=== PATIENT | male | born 1980 | race Caucasian/White ===

== ENCOUNTER 2018-04-02 15:02 | Emergency (ER) | payer OTHER | END 2018-04-02 15:40 | disposition home or self-care (01) | LOC: M ED 15:02 | DX: R59.1 Generalized enlarged lymph nodes (principal) | CPT/HCPCS: 99283 ==

== ENCOUNTER → 2019-09-06 | Outpatient (REF) | payer OTHER ==
[~2019-09-06] MED LIST: CLEO300C2 PO
[2019-09-06 17:21] LABS: BLOOD UREA NITROGEN 14 MG/DL (7-18); CALCIUM LEVEL 9.2 MG/DL (8.5-10.1); CARBON DIOXIDE LEVEL 28 MEQ/L (21-32); CHLORIDE LEVEL 101 MEQ/L (98-107); CREATININE FOR GFR 0.91 MG/DL (0.70-1.30); GLOMERULAR FILTRATION RATE > 60.0 (>60); GLUCOSE, FASTING 99 MG/DL (70-100); HEMATOCRIT 49.6 % (42.0-52.0); HEMOGLOBIN 16.6 g/dl (13.5-17.5); MEAN CORPUSCULAR HGB CONC 33.5 g/dl (32.0-36.5); MEAN CORPUSCULAR VOLUME 83.6 fl (80.0-96.0); PLATELET COUNT, AUTOMATED 271 10^3/uL (150-450); POTASSIUM SERUM 4.7 MEQ/L (3.5-5.1); RED BLOOD COUNT 5.93 10^6/uL (4.30-6.10); SODIUM LEVEL 137 MEQ/L (136-145); WHITE BLOOD COUNT 10.9 10^3/uL (4.0-10.0)
== END ==
LOC: M SFHCPLAZ 15:15
PROVIDERS: ATTEND Family Medicine
DX: R00.0 Tachycardia, unspecified (principal)
CPT/HCPCS: 36415; 80048; 85027; 93005; G0463

== ENCOUNTER → 2019-09-16 | Outpatient (REF) | payer OTHER ==
[2019-09-16 16:31] LABS: FREE T4 0.92 NG/DL (0.76-1.46); THYROID STIMULATING HORMONE 1.07 uIU/ML (0.358-3.740)
[2019-09-23 04:26] LABS: DOPAMINE PLASMA <30 pg/mL (0-48); EPINEPHRINE PLASMA 41 pg/mL (0-62); NOREPINEPHRINE PLASMA 462 pg/mL (0-874)
== END ==
LOC: M SFHCPLAZ 14:42
PROVIDERS: ATTEND Family Medicine
DX: I10 Essential (primary) hypertension (principal)

== ENCOUNTER → 2019-09-21 | Outpatient (CLI) | payer OTHER ==
--- NOTE | 2019-09-22 05:29 | REP ---
Clinical: Hypertension. Technique: Finch scale and color Doppler evaluation of the kidneys and renal vasculature using curved array transducer. Findings: The kidneys are essentially normal in contour size and echogenicity and reniform shape without hydronephrosis, nephrolithiasis, cystic or renal mass lesion. Right kidney measures 13.8 x 4.2 x 5.6 cm . Left kidney measures 13.1 x 5.6 x 4.6 cm . Bladder is incompletely distended and grossly normal by current evaluation. Color Doppler evaluation of the renal vasculature demonstrates normal arterial wave patterns, velocities, renal aortic ratios, resistive indices and the acceleration time. No sonographic evidence for renal arterial stenosis noted. Renal vein is patent. Right Kidney: Peak arterial velocity: 100 cm/sec . Renal aortic ratio: 1.08 . Resistive indices: 0.52 - 0.61 . Acceleration times: 0.01 . Left kidney: Peak arterial velocity: 118 cm/sec . Renal aortic ratio: 1.27 . Resistive indices: 0.49 - 0.54 . Acceleration times: 0.01 . Impression: Normal renal ultrasound. No evidence for renal arterial stenosis by ultrasound evaluation.
== END ==
LOC: M WHC 08:24
PROVIDERS: ATTEND Family Medicine
DX: I10 Essential (primary) hypertension (principal)

== ENCOUNTER → 2019-12-27 | Outpatient (CLI) | payer OTHER ==
[2019-12-27 13:48] LABS: ALBUMIN 3.7 GM/DL (3.2-5.2); ALT/SGPT 59 U/L (12-78); BILIRUBIN,TOTAL 0.3 MG/DL (0.2-1.0); BLOOD UREA NITROGEN 19 MG/DL (7-18); CALCIUM LEVEL 9.2 MG/DL (8.5-10.1); CARBON DIOXIDE LEVEL 29 MEQ/L (21-32); CHLORIDE LEVEL 105 MEQ/L (98-107); CREATININE FOR GFR 0.91 MG/DL (0.70-1.30); FREE T4 0.73 NG/DL (0.76-1.46); GLOMERULAR FILTRATION RATE > 60.0 (>60); GLUCOSE, FASTING 100 MG/DL (70-100); POTASSIUM SERUM 4.4 MEQ/L (3.5-5.1); SODIUM LEVEL 139 MEQ/L (136-145); TOTAL PROTEIN 6.9 GM/DL (6.4-8.2)
== END ==
LOC: M PLALAB 08:11
PROVIDERS: ATTEND Hospitalist
DX: R60.0 Localized edema (principal)

== ENCOUNTER → 2020-01-24 | Outpatient (CLI) | payer OTHER ==
--- NOTE | 2020-01-28 14:29 | ECHO ---
DATE OF PROCEDURE: 01/24/2020 Gender: M Height: 180 cm Weight: 146 kg REFERRING PHYSICIAN: Delmer Medel M.D. INDICATION: Edema MEASUREMENTS: IVS 1.0 LV 5.1 LVPW 0.9 LA 3.7 Aorta 3.4 RV 3.9 Mitral E wave velocity is 94; A wave 59 E prime septal 8.9 E prime lateral 9.3 FINDINGS: This study is of very limited technical quality corresponding to patient's body habitus. The patient is in sinus rhythm. Left ventricle is normal size and overall likely normal systolic function based on somewhat limited views. I estimate overall left ventricular ejection fraction (LVEF) 70% but I cannot rule out subtle wall motion abnormalities. The right ventricle was poorly visualized. It does not appear grossly enlarged. Left atrium is at least mildly enlarged. Right atrium was poorly seen. Aortic, mitral and to some degree also tricuspid valves appear normal. Visualization of tricuspid valve was very poor though. Pulmonic valve was not seen. No pericardial effusion is noted. Inferior vena cava was not visualized. Aortic root is normal. Aortic arch and abdominal aorta were not well seen. Doppler interrogation reveals competent aortic and mitral valves. Poor visualization of tricuspid valve does not indicate any obvious abnormality either. Mitral inflow pattern and tissue Doppler imaging of mitral annulus reveals likely normal diastolic function even though tissue Doppler velocities of mitral annulus are mildly reduced. CONCLUSIONS: 1. Study is of rather limited technical quality corresponding to patient's body habitus. 2. Normal left ventricle size with overall preserved left ventricular systolic function and probably also normal diastolic function. 3. No significant aortic, mitral and tricuspid valvular disease, pulmonic valve was not well seen. 4. Unable to estimate central venous pressure and pulmonary artery pressure. COMMENTS: This study cannot answer the question whether peripheral edema is due to congestive heart failure but based on very limited images, it appears less likely. [facility]
--- NOTE | 2020-02-02 07:11 | REP ---
DUPLEX LOWER EXTREMITY VENOUS ULTRASOUND WITH DOPPLER AND REFLUX EVALUATION HISTORY: Venous insufficiency. FINDINGS: The deep veins are anechoic and fully compressible on two-dimensional scanning from the groin to the popliteal fossa bilaterally in the lower extremities. Color flow imaging and pulse Doppler interrogation show no evidence to suggest deep vein thrombosis (DVT). IMPRESSION: No evidence of deep vein thrombosis. VENOUS INSUFFICIENCY REFLUX STUDY: Multiple collaterals are seen arising from the greater saphenous vein with minimal reflux in the right common femoral and superficial femoral vein. Common femoral vein reflux is 3.9 seconds in duration. The greater saphenous vein measures 9 mm in AP dimension at the proximal saphenofemoral junction, 4 mm in AP dimension at mid thigh, and 3 mm in AP dimension at the knee. 4.9 second duration reflux is seen in the proximal superficial femoral vein. The lesser saphenous vein is 3 mm in diameter. No deep or superficial system reflux is observed on the left. The greater saphenous vein dimensions are 8 mm, 3 mm, and 2 mm respectively at the proximal thigh, mid thigh, and knee. Lesser saphenous vein is 3 mm in diameter on the left. IMPRESSION: Multiple venous collaterals are seen extending off of the greater saphenous vein on the right. There is minimal common femoral and superficial femoral vein reflux on the right. No observable deep or superficial system reflux on the left. [facility]
== END ==
LOC: M RAD 12:42
PROVIDERS: ATTEND Hospitalist
DX: R60.0 Localized edema (principal); I87.2 Venous insufficiency (chronic) (peripheral); I15.8 Other secondary hypertension

== ENCOUNTER → 2020-02-24 | Outpatient (CLI) | payer OTHER ==
--- NOTE | 2020-02-29 13:37 | SLEEPCENT ---
DATE: 02/24/2020 ORDERED BY: KATHERINE Roblero Nocturnal polysomnography was performed for evaluation of sleep physiology in this patient with a history of excessive somnolence, nonrestorative sleep, and morning headaches. Seven hours and 7 minutes of data were reviewed. There were 321.5 minutes of sleep identified. Sleep latency was prolonged at 40 minutes. REM latency was short at 64 minutes. Sleep architecture was fairly well preserved with four REM cycles of progressive length. There was some sleep fragmentation appreciated. Overall sleep efficiency 77%. The electrocardiogram showed a sinus rhythm with an average heart rate of 80 beats per minute. Rate ranged 60-102. EEG showed some EKG artifact. There was some alpha intrusion into non-REM stages. No focal events were seen. There were 91 respiratory events identified of 10 seconds in duration or greater for an apnea-hypopnea index of 17 per hour. The events were obstructive, not exclusive to sleep stage nor to body posture though they were somewhat more frequent in the supine position. Arousals from respiratory events resulted in stage change 9.3 times per hour, and oxygen desaturations were seen into the 70s. There was also some activity in limb EMG leads but no trains of events and snoring was noted over the entire study. IMPRESSION: Moderate obstructive sleep apnea syndrome (G47.33). Apnea-hypopnea index 17. RECOMMENDATION: The patient should be encouraged to return to [facility] for [facility]. In the interim, alcohol and sedative avoidance should be practiced and caution exercised during the operation of motor vehicles. MTDD
== END ==
LOC: M SLEEP 20:00
PROVIDERS: ATTEND Physician Assistant
DX: G47.33 Obstructive sleep apnea (adult) (pediatric) (principal); R40.0 Somnolence

== ENCOUNTER → 2020-03-16 | Outpatient (CLI) | payer OTHER ==
--- NOTE | 2020-03-20 11:42 | SLEEPCENT ---
DATE: 03/16/2020 ORDERED BY: KATHERINE Roblero Nocturnal polysomnography was performed for the titration of pressure therapy in this patient with obstructive sleep apnea syndrome with apnea-hypopnea index of 17. For testing, the patient was fitted with a ResMed Quattro full face mask of large size was used, 4 cm of water pressure were applied to the circuit, and the lights were extinguished. 6 hours and 58 minutes of data were reviewed. There were 354.5 minutes of sleep identified. Sleep latency was prolonged at 34 minutes. REM latency was short at 44 minutes. Sleep architecture was good with four REM cycles appreciated. Overall sleep efficiency was 86.1%. The electrocardiogram showed a sinus rhythm throughout with an average heart rate of 85 beats per minute, rate range 78 to 105. EEG showed reasonably normal waveforms for wake and sleep. Respiratory events were best palliated with CPAP at a pressure of +14 with some activity noted in the limb leads. Limb movement arousal index was 5.1. IMPRESSION: Obstructive sleep apnea syndrome (G47.33). RECOMMENDATION: Nightly use of pressure therapy 14 cm of water. MTDD
== END ==
LOC: M SLEEP 20:00
PROVIDERS: ATTEND Physician Assistant
DX: G47.33 Obstructive sleep apnea (adult) (pediatric) (principal)

== ENCOUNTER → 2020-03-28 | Outpatient (REF) | payer OTHER | LOC: M SFHCPLAZ 10:25 | PROVIDERS: ATTEND Family Medicine | DX: Z53.9 Procedure and treatment not carried out, unspecified reason (principal); I15.8 Other secondary hypertension ==

== ENCOUNTER 2020-10-13 03:21 | Inpatient (IN) | payer OTHER, MEDICAID ==
[~2020-10-13] VITALS: Ht 180.3 cm; Wt 130.5 kg
[2020-10-13] VITALS (10 sets, daily range): BP systolic 93–152; BP diastolic 53–78
[2020-10-13 03:54] LABS: BASO # 0.1 10^3/uL (0.0-0.2); BASO % 1.1 % (0.0-1.0); EOS # 0.1 10^3/uL (0.0-0.5); EOS % 2.1 % (0.0-3.0); HEMATOCRIT 45.4 % (42.0-52.0); HEMOGLOBIN 16.1 g/dl (13.5-17.5); LYMPH # 1.5 10^3/uL (1.5-5.0); LYMPH % 23.4 % (24.0-44.0); MEAN CORPUSCULAR HEMOGLOBIN 31.4 pg (27.0-33.0); MEAN CORPUSCULAR HGB CONC 35.5 g/dl (32.0-36.5); MEAN CORPUSCULAR VOLUME 88.5 fl (80.0-96.0); MONO # 0.5 10^3/uL (0.0-0.8); MONO % 8.5 % (2.0-8.0); NEUTROPHILS # 3.9 10^3/uL (1.5-8.5); NEUTROPHILS % 63.4 % (36.0-66.0); PLATELET COUNT, AUTOMATED 192 10^3/uL (150-450); RED BLOOD COUNT 5.13 10^6/uL (4.30-6.10); WHITE BLOOD COUNT 6.2 10^3/uL (4.0-10.0)
[2020-10-13 05:12] LABS: ALBUMIN 3.2 GM/DL (3.2-5.2); BILIRUBIN,DIRECT < 0.1 MG/DL (0.0-0.2); BILIRUBIN,TOTAL 0.9 MG/DL (0.2-1.0); BLOOD UREA NITROGEN 12 MG/DL (7-18); CARBON DIOXIDE LEVEL 16 MEQ/L (21-32); CHLORIDE LEVEL 98 MEQ/L (98-107); CK-MB VALUE MASS 2.5 NG/ML (<3.6); CPK CREATINE PHOSPHOKINASE 292 U/L (39-308); CREATININE FOR GFR 1.31 MG/DL (0.70-1.30); GLOMERULAR FILTRATION RATE > 60.0 (>60); GLUCOSE, FASTING 874 MG/DL (70-100); LIPASE 256 U/L (73-393); MB/CK RELATIVE INDEX 0.86 (< OR =4); SODIUM LEVEL 129 MEQ/L (136-145); TROPONIN I < 0.02 NG/ML (< 0.10)
--- NOTE | 2020-10-13 05:42 | ECGEPIP ---
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
[2020-10-13] MEDS ORDERED: HumuLIN R (REGULAR) INSULIN (NovoLIN R) **100U/ML** PER UNIT IV ONE (06:00)
[2020-10-13] MEDS ORDERED: ISOVUE-370 76% 100ML VIAL As Ordered ONE (06:10)
[2020-10-13 06:15] LABS: VENOUS BASE EXCESS -16.2 (-2.0-2.0); VENOUS O2 SATURATION 78.7 % (60.0-80.0); VENOUS PARTIAL PRESSURE CO2 36.3 mmHg (38.0-50.0); VENOUS PARTIAL PRESSURE O2 46.9 mmHg (30.0-50.0); VENOUS PH 7.136 UNITS (7.330-7.430); VENOUS STANDARD HCO3 12.2 MEQ/L; VENOUS TOTAL CO2 13.1 MEQ/L (24.0-28.0)
[2020-10-13 06:37] LABS: OSMOLALITY SERUM 325 MOSM/KG (275-295)
[2020-10-13 06:49] LABS: ACETONE/KETONE > 46.00 MG/DL (<2.81); ALBUMIN 3.3 GM/DL (3.2-5.2); ALT/SGPT 59 U/L (12-78); BILIRUBIN,DIRECT < 0.1 MG/DL (0.0-0.2); BILIRUBIN,TOTAL 0.8 MG/DL (0.2-1.0); MAGNESIUM LEVEL 2.5 MG/DL (1.8-2.4); PHOSPHORUS LEVEL 3.3 MG/DL (2.5-4.9); TOTAL PROTEIN 6.8 GM/DL (6.4-8.2)
[2020-10-13] MEDS ORDERED: INSULIN IV RATE CHANGE DOCUMENTATION ML/HR XX SCH (06:50)
[2020-10-13] MEDS ORDERED: NS 1,000 ML IV ONE ×3 (06:50→11:10)
[2020-10-13] MEDS ORDERED: INSULIN REGULAR IN 0.9 % NACL 100 UNIT in IV 1 EA IV SCH ×6 (06:50→22:05)
--- NOTE | 2020-10-13 07:02 | REPVR ---
PROCEDURE INFORMATION: Exam: XR Chest Exam date and time: 10/13/2020 3:57 AM Age: 39 years old Clinical indication: Other: Chest pain TECHNIQUE: Imaging protocol: XR of the chest. Views: 1 view. COMPARISON: No relevant prior studies available. FINDINGS: Lungs: Unremarkable. No consolidation. Pleural spaces: Unremarkable. No pleural effusion. No pneumothorax. Heart/Mediastinum: Unremarkable. No cardiomegaly. Bones/joints: Unremarkable. IMPRESSION: No acute findings. Electronically signed by: Alessio Hobbs On 10/13/2020 07:01:39 AM
[2020-10-13] MEDS ORDERED: ATOR40TA75 PO (07:08)
[2020-10-13] MEDS ORDERED: ERGO500029 PO (07:08)
[2020-10-13] MEDS ORDERED: METF-839 PO (07:08)
[2020-10-13] MEDS ORDERED: LEXA1TAB2 PO (07:08)
[2020-10-13 08:23] LABS: RSV AMPLIFICATION NEGATIVE (NEGATIVE)
[2020-10-13] MEDS ORDERED: ONDANSETRON 4MG/2ML VIAL IV PRN (09:00)
[2020-10-13] MEDS ORDERED: NS 1,000 ML IV SCH (09:00)
[2020-10-13] MEDS ORDERED: PANTOPRAZOLE 40MG VIAL (C9113 PER 1) IV SCH (09:00)
[2020-10-13 12:02] LABS: HEMOGLOBIN A1c 13.7 %
[2020-10-13] MEDS: INSULIN IV RATE CHANGE DOCUMENTATION ML/HR XX SCH ×10 (12:07→22:58)
[2020-10-13 12:09] LABS: BLOOD UREA NITROGEN 9 MG/DL (7-18); CALCIUM LEVEL 7.8 MG/DL (8.5-10.1); CARBON DIOXIDE LEVEL 12 MEQ/L (21-32); CHLORIDE LEVEL 115 MEQ/L (98-107); CREATININE FOR GFR 0.83 MG/DL (0.70-1.30); GLOMERULAR FILTRATION RATE > 60.0 (>60); GLUCOSE, FASTING 238 MG/DL (70-100); POTASSIUM SERUM 3.4 MEQ/L (3.5-5.1); SODIUM LEVEL 142 MEQ/L (136-145)
[2020-10-13] MEDS: KCL 40MEQ IN D5/0.45NS 1000ML 1,000 ML IV SCH ×2 (12:36→19:12)
--- NOTE | 2020-10-13 13:38 | HPEPDOC ---
General Date of Admission Oct 13, 2020 at 08:58 Date of Service: Oct 13, 2020 Chief Complaint The patient is a 39-year-old male admitted with a reason for visit of DKA. Source: Patient History of Present Illness 39 lynnette old male with PMH of Hypertension, Diabetes diagnosed in july 2020, Morbid obesity, RENETTA on CPAP, HLD, generalized anxiety disorder presented to ED for chest pain ad shortness of breath for a few hours. he also complained of nausea and vomiting , poor appetite for 2 days and polyuria , polydipsia for 6 months. He reported that he was diagnosed with Diabetes at the [facility] in july, along with vit d def and high cholesterol and was started on 7 medications. he took them for 2 weeks but one of meds was causing him to have upset stomach so he stopped taking all the meds. On arrival to [facility] ED he was unsteady on his feet, anxious, fidgety could not stay still complained of cramp in his left leg along with SOB and chest pain. He was found to have a blood glucose of 854 and blood gas showed a pH of 7.13 and elevated betahydroxybutyrate. he was diagnosed with DKA and admitted to ICU. Home Medications Scheduled Atorvastatin Calcium (Atorvastatin Calcium) 40 Mg Tablet, 40 MG PO DAILY, (Reported) Ergocalciferol (Vitamin D2) (Vitamin D2) 50,000 Units Cap, 50,000 UNITS PO QWEEK, (Reported) FRIDAYS Escitalopram Oxalate (Lexapro) 20 Mg Tablet, 20 MG PO DAILY, (Reported) Metformin HCl (Metformin HCl) 500 Mg Tablet, 500 MG PO BID, (Reported) Allergies Coded Allergies: No Known Allergies (Unverified , 04/02/18) Past Medical History Medical History Hypertension, Diabetes diagnosed in july 2020, Morbid obesity, RENETTA on CPAP, HLD , generalized anxiety disorder. Surgical History tonsillectomy, vasectomy. Family History Significant Family History: COPD (Mother), Diabetes (maternal gransmother) Social History * Smoker: chew (tobacco) Alcohol: occationally Drugs: denies A-FIB/CHADSVASC A-FIB History Current/History of A-Fib/PAF?: No Review of Systems Constitutional: Reports: Weakness, Fatigue; Denies: Chills, Fever, Night Sweats Eyes: Denies: Pain, Vision change ENT: Denies: Head Aches, Ear Pain, Dysphagia Skin: Denies: Rash, Lesions, Breakdown Pulmonary: Reports: Dyspnea; Denies: Cough Cardiovascular: Reports: Chest Pain, Lt Headedness; Denies: Palpitations, Orthopnea, Paroxysmal Noc. Dyspnea Gastrointestinal: Reports: Nausea, Vomiting, Abdominal Pain; Denies: Diarrhea Genitourinary: Reports: Frequency; Denies: Dysuria, Incontinence, Retention Endocrine: Reports: Polydipsia, Polyphagia, Polyuria Physical Examination General Exam: Positive: Alert, Cooperative, Mild Distress Eye Exam: Positive: PERRLA, Conjunctiva & lids normal, EOMI; Negative: Sclera icteric ENT Exam: Positive: Atraumatic, Mucous membr. moist/pink, Pharynx Normal Neck Exam: Positive: Supple; Negative: JVD, thyromegaly Chest Exam: Positive: Clear to auscultation, Normal air movement Heart Exam: Positive: Rate Normal, Regular Rhythm, Normal S1, Normal S2; Negative: Murmurs, Rubs Telemetry: Positive: No significant arrhythmia, Sinus, Tachycardia Abdomen Exam: Positive: Normal bowel sounds, Soft, Other (obese); Negative: Tenderness Extremity Exam: Negative: Clubbing, Cyanosis, Edema Vital Signs Vital Signs Date Time Temp Pulse Resp B/P (MAP) Pulse Ox O2 Delivery O2 Flow Rate FiO2 10/13/20 12:00 102 124/59 (80) 97 Room Air 10/13/20 10:44 98.6 20 Laboratory Data Labs 24H Laboratory Tests 2 10/13/20 03:46: Immature Granulocyte % (Auto) 1.5, Neutrophils (%) (Auto) 63.4, Lymphocytes (%) (Auto) 23.4L, Monocytes (%) (Auto) 8.5H, Eosinophils (%) (Auto) 2.1, Basophils (%) (Auto) 1.1H, Neutrophils # (Auto) 3.9, Lymphocytes # (Auto) 1.5, Monocytes # (Auto) 0.5, Eosinophils # (Auto) 0.1, Basophils # (Auto) 0.1, Nucleated Red Blood Cells % (auto) 0.0, Anion Gap 15, Glomerular Filtration Rate > 60.0, Calcium Level , Total Bilirubin 0.9, Direct Bilirubin < 0.1, Aspartate Amino Transf (AST/SGOT) , Alanine Aminotransferase (ALT/SGPT) , Alkaline Phosphatase 225H, Total Creatine Kinase 292, Creatine Kinase MB 2.5, Creatine Kinase MB Relative Index 0.86, Troponin I < 0.02, Total Protein , Albumin 3.2, Album in/Globulin Ratio , Lipase 256 10/13/20 05:59: Calcium Level , Total Bilirubin 0.8, Direct Bilirubin < 0.1, Aspartate Amino Transf (AST/SGOT) 47H, Alanine Aminotransferase (ALT/SGPT) 59, Alkaline Phosphatase 196H, Total Protein 6.8, Albumin 3.3, Albumin/Globulin Ratio 0.9, Urine Color STRAW, Urine Appearance CLEAR, Urine pH 5.0, Urine Specific [place] 1.024, Urine Protein NEGATIVE, Urine Glucose (UA) 3+H, Urine Ketones 2+H, Urine Blood 2+H, Urine Nitrite NEGATIVE, Urine Bilirubin NEGATIVE, Urine Urobilinogen 0.2, Urine Leukocyte Esterase NEGATIVE, Urine WBC (Auto) 0, Urine RBC (Auto) 1, Urine Hyaline Casts (Auto) 0, Urine Bacteria (Auto) NEGATIVE, Urine Squamous Epithelial Cells 0, Urine Mucus (Auto) SMALL, Urine Sperm (Auto) , Blood Gas Bicarbonate Standard 12.2, Venous Blood pH 7.136L, Venous Blood Partial Pressure CO2 36.3L, Venous Blood Partial Pressure O2 46.9, Venous Blood Total Carbon Dioxide 13.1L, Venous Blood HCO3 12.0L, Venous Blood Oxygen Saturation 78.7, Venous Blood Base Excess -16.2L, Osmolality 325H, Phosphorus Level 3.3, Magnesium Level 2.5H, B-Hydroxybutyrate > 46.00H 10/13/20 07:03: Bedside Glucose (Misc Panel) 536*H 10/13/20 07:28: Coronavirus (COVID-19)(PCR) NEGATIVE, Influenza Type A (RT-PCR) NEGATIVE, Influenza Type B (RT-PCR) NEGATIVE, Respiratory Syncytial Virus (PCR) NEGATIVE 10/13/20 08:03: Bedside Glucose (Misc Panel) 481H 10/13/20 09:11: Bedside Glucose (Misc Panel) 448H 10/13/20 10:05: Bedside Glucose (Misc Panel) 371H 10/13/20 10:45: Bedside Glucose (Misc Panel) 260H 10/13/20 11:29: Anion Gap 15, Glomerular Filtration Rate > 60.0, Estimated Mean Plasma Glucose 346H, Hemoglobin A1c 13.7, Calcium Level 7.8L 10/13/20 12:03: Bedside Glucose (Misc Panel) 180H CBC/BMP Laboratory Tests 10/13/20 03:46 10/13/20 11:29 Assessment/Plan 39 lynnette old male with PMH of Hypertension, Diabetes diagnosed in july 2020, Morbid obesity, RENETTA on CPAP, HLD, generalized anxiety disorder presented to ED for chest pain ad shortness of breath for a few hours. he also complained of nausea and vomiting , poor appetite for 2 days and polyuria , polydipsia for 6 months. He was found to have DKA. DKA diagnosed with DM in july 2020, His sugars in 2019 were normal. insulin infusion till gap corrected and bicab > 20 FS q 1 hours. npo, allow water and ice chips received 3 L bolus. IVF NS then change to dex/ 0.45 NS when sugars less than 200. symptomatic with zofran, PPI. Hypokalemia K added to IVF pseudohyponatremia due to the high sugars. Morbid obesity with RENETTA BMI of 40.1 may use own CPAP Hypertension Bp noramal will not give any meds now. HLD will check lipid panel No meds for now. RAINA BARRAZA MD Oct 13, 2020 13:38
[2020-10-13 17:55] LABS: BLOOD UREA NITROGEN 8 MG/DL (7-18); CALCIUM LEVEL 7.9 MG/DL (8.5-10.1); CARBON DIOXIDE LEVEL 15 MEQ/L (21-32); CHLORIDE LEVEL 117 MEQ/L (98-107); CREATININE FOR GFR 0.96 MG/DL (0.70-1.30); GLOMERULAR FILTRATION RATE > 60.0 (>60); GLUCOSE, FASTING 181 MG/DL (70-100); POTASSIUM SERUM 3.4 MEQ/L (3.5-5.1); SODIUM LEVEL 144 MEQ/L (136-145)
[2020-10-13] MEDS ORDERED: POTASSIUM CHLORIDE 10 MEQ SR TABLET PO ONE (19:00)
[2020-10-13] MEDS: POTASSIUM CHLORIDE 10 MEQ SR TABLET PO SCH (20:02)
[2020-10-13 23:26] LABS: BLOOD UREA NITROGEN 8 MG/DL (7-18); CALCIUM LEVEL 7.6 MG/DL (8.5-10.1); CARBON DIOXIDE LEVEL 18 MEQ/L (21-32); CHLORIDE LEVEL 118 MEQ/L (98-107); CREATININE FOR GFR 0.97 MG/DL (0.70-1.30); GLOMERULAR FILTRATION RATE > 60.0 (>60); GLUCOSE, FASTING 243 MG/DL (70-100); POTASSIUM SERUM 3.5 MEQ/L (3.5-5.1); SODIUM LEVEL 144 MEQ/L (136-145)
[2020-10-13] MEDS ORDERED: LEVEMIR (INSULIN DETEMIR) 1 UNITS/0.01ML SC ONE (23:45)
[2020-10-14] VITALS: BP 131/73
[2020-10-14] MEDS ORDERED: GLUCAGON INJ 1MG VIAL SC PRN (00:20)
[2020-10-14] MEDS ORDERED: GLUCOSE 4GM CHEW TABLET PO PRN (00:20)
[2020-10-14] MEDS ORDERED: DEXTROSE 50% 50 ML SYRINGE IV PRN (00:20)
[2020-10-14] MEDS: INSULIN IV RATE CHANGE DOCUMENTATION ML/HR XX SCH (00:25)
[2020-10-14] MEDS: HumaLOG INSULIN (NovoLOG) PER UNIT SC SCH ×5 (00:34→17:21)
[2020-10-14 04:00] VITALS: BP 139/88
[2020-10-14 04:51] LABS: BASO # 0.1 10^3/uL (0.0-0.2); BASO % 0.8 % (0.0-1.0); EOS # 0.2 10^3/uL (0.0-0.5); HEMATOCRIT 39.7 % (42.0-52.0); LYMPH # 1.8 10^3/uL (1.5-5.0); LYMPH % 30.5 % (24.0-44.0); MEAN CORPUSCULAR HEMOGLOBIN 28.9 pg (27.0-33.0); MONO # 0.6 10^3/uL (0.0-0.8); MONO % 9.2 % (2.0-8.0); NEUTROPHILS # 3.3 10^3/uL (1.5-8.5); NEUTROPHILS % 55.5 % (36.0-66.0); PLATELET COUNT, AUTOMATED 151 10^3/uL (150-450); RED BLOOD COUNT 4.67 10^6/uL (4.30-6.10)
[2020-10-14 04:54] LABS: HEMOGLOBIN 13.5 g/dl (13.5-17.5)
[2020-10-14 05:32] LABS: ACETONE/KETONE 42.94 MG/DL (<2.81); BLOOD UREA NITROGEN 7 MG/DL (7-18); CALCIUM LEVEL 7.9 MG/DL (8.5-10.1); CARBON DIOXIDE LEVEL 18 MEQ/L (21-32); CHLORIDE LEVEL 114 MEQ/L (98-107); CHOLESTEROL LEVEL 231 MG/DL (<200); CHOLESTEROL RISK RATIO 12.157 (<5); CREATININE FOR GFR 0.87 MG/DL (0.70-1.30); GLOMERULAR FILTRATION RATE > 60.0 (>60); GLUCOSE, FASTING 286 MG/DL (70-100); HDL CHOLESTEROL 19 MG/DL (>40); NON-HDL-C 212 MG/DL; POTASSIUM SERUM 3.4 MEQ/L (3.5-5.1); SODIUM LEVEL 141 MEQ/L (136-145); TRIGLYCERIDES LEVEL 1056 MG/DL (<150)
--- NOTE | 2020-10-14 06:46 | ECGEPIP ---
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
[2020-10-14 08:00] VITALS: BP 132/63
[2020-10-14] MEDS ORDERED: BASA100I SC (08:01)
[2020-10-14] MEDS: POTASSIUM CHLORIDE 10 MEQ SR TABLET PO SCH ×2 (08:48→21:23)
[2020-10-14] MEDS: PANTOPRAZOLE 40MG TAB (PROTONIX) PO SCH (08:48)
[2020-10-14] MEDS: ENOXAPARIN 40MG/0.4ML SYRINGE (J1650 PER 10MG) SC SCH (08:49)
[2020-10-14] MEDS: ATORVASTATIN 20 MG TAB PO SCH (08:49)
[2020-10-14] MEDS ORDERED: LEVEMIR (INSULIN DETEMIR) 1 UNITS/0.01ML SC SCH (09:00)
--- NOTE | 2020-10-14 11:02 | IPNPDOC ---
Subjective Date Seen The patient was seen on 10/14/20. Subjective Chief Complaint/HPI Patient feeling better. Polyuria less, no further vomiting. Able to keep all meals down. getting insulin teaching. I sent over script to [facility] for basaglar inulin which has a copay of 341. Patient [place] for medication through [place]. Unfortunately we will not be able to arrange for his insulin through [place] till the earliest Friday. PFS is going to get in touch with [facility] to see if there is any other alternate insulins that are cheaper. Patient says he will not go to [facility] anyway. He wants his medication only though the [place] where he does not have any copay for any of his medications. He indicated that he is not going to stay till friday and is going to sign out AMA and the hospital has to arrange for his medications. Objective Physical Examination General Exam: Positive: Alert, Cooperative, No Acute Distress Eye Exam: Positive: PERRLA, Conjunctiva & lids normal, EOMI; Negative: Sclera icteric ENT Exam: Positive: Atraumatic, Mucous membr. moist/pink, Pharynx Normal Neck Exam: Positive: Supple; Negative: JVD, thyromegaly Chest Exam: Positive: Clear to auscultation, Normal air movement Heart Exam: Positive: Rate Normal, Regular Rhythm, Normal S1, Normal S2; Negative: Murmurs, Rubs Telemetry: Positive: No significant arrhythmia, Sinus, Tachycardia Abdomen Exam: Positive: Normal bowel sounds, Soft, Other (obese); Negative: Tenderness Extremity Exam: Negative: Clubbing, Cyanosis, Edema Assessment /Plan Assessment 39 lynnette old male with PMH of Hypertension, Diabetes diagnosed in July 2020, Morbid obesity, RENETTA on CPAP, HLD, generalized anxiety disorder presented to ED for chest pain ad shortness of breath for a few hours. he also complained of nausea and vomiting , poor appetite for 2 days and polyuria , polydipsia for 6 months. He was found to have DKA. DKA diagnosed with DM in july 2020, His sugars in 2019 were normal. resolving. Betahydroxybutyrate still elevated. changed to levemir and lispro insulin. will also give glimiperide. Tests sent out for islet cell antibodies. FS ac and HS. started on insulin teaching. Hypokalemia replaced Hypertriglyceridemia triglyceride 1076 started on atorvastatin. Morbid obesity with RENETTA BMI of 40.1 does not use the CPAP as he has to go to the bathroom every hour. Encouraged to go back to using the CPAP as now with better sugar control he will not have polyuria. Hypertension Bp normal will not give any meds now. Plan/VTE VTE Prophylaxis Ordered?: Yes VS, I&O, 24H, Fishbone Vital Signs/I&O Vital Signs Date Time Temp Pulse Resp B/P (MAP) Pulse Ox O2 Delivery O2 Flow Rate FiO2 10/14/20 08:00 97.4 87 20 132/63 (86) 98 Room Air I&O- Last 24 Hours up to 6 AM 10/14/20 06:00 Intake Total 5553 ml Output Total 5275 ml Balance 278 ml Laboratory Data 24H LABS Laboratory Tests 2 10/13/20 11:29: Anion Gap 15, Glomerular Filtration Rate > 60.0, Estimated Mean Plasma Glucose 346H, Hemoglobin A1c 13.7, Calcium Level 7.8L 10/13/20 12:03: Bedside Glucose (Misc Panel) 180H 10/13/20 13:13: Bedside Glucose (Misc Panel) 152H 10/13/20 14:00: Bedside Glucose (Misc Panel) 151H 10/13/20 14:59: Bedside Glucose (Misc Panel) 175H 10/13/20 15:59: Bedside Glucose (Misc Panel) 166H 10/13/20 16:58: Bedside Glucose (Misc Panel) 183H 10/13/20 17:02: Anion Gap 12, Glomerular Filtration Rate > 60.0, Calcium Level 7.9L, B- Hydroxybutyrate > 46.00H 10/13/20 18:02: Bedside Glucose (Misc Panel) 169H 10/13/20 18:51: Bedside Glucose (Misc Panel) 197H 10/13/20 19:53: Bedside Glucose (Misc Panel) 282H 10/13/20 20:52: Bedside Glucose (Misc Panel) 261H 10/13/20 21:55: Bedside Glucose (Misc Panel) 239H 10/13/20 22:42: Anion Gap 8, Glomerular Filtration Rate > 60.0, Calcium Level 7.6L 10/13/20 22:56: Bedside Glucose (Misc Panel) 299H 10/14/20 00:17: Bedside Glucose (Misc Panel) 210H 10/14/20 03:50: Bedside Glucose (Misc Panel) 265H 10/14/20 04:29: Immature Granulocyte % (Auto) 1.0, Neutrophils (%) (Auto) 55.5, Lymphocytes (%) (Auto) 30.5, Monocytes (%) (Auto) 9.2H, Eosinophils (%) (Auto) 3.0, Basophils (%) (Auto) 0.8, Neutrophils # (Auto) 3.3, Lymphocytes # (Auto) 1.8, Monocytes # (Auto) 0.6, Eosinophils # (Auto) 0.2, Basophils # (Auto) 0.1, Nucleated Red Blood Cells % (auto) 0.0, Anion Gap 9, Glomerular Filtration Rate > 60.0, Calcium Level 7.9L, Triglycerides Level 1056H, Total Cholesterol 231H, LDL Cholesterol , Non-HDL Cholesterol (LDL + VLDL) 212, Total HDL Cholesterol 19L, Cholesterol/HDL Ratio 12.157H, B-Hydroxybutyrate 42.94H 10/14/20 07:48: Bedside Glucose (Misc Panel) 314H CBC/BMP Laboratory Tests 10/13/20 11:29 10/13/20 17:02 10/13/20 22:42 10/14/20 04:29 RAINA BARRAZA MD Oct 14, 2020 11:02
[2020-10-14 12:00] VITALS: BP 138/76
[2020-10-14] MEDS ORDERED: BLOOKIT21 XX (12:03)
[2020-10-14] MEDS ORDERED: INSU1MIS20 SC (12:03)
[2020-10-14] MEDS ORDERED: HUMU70IN SC (12:03)
[2020-10-14] MEDS ORDERED: LANC30MI XX (12:03)
[2020-10-14] MEDS ORDERED: GLUC1TES2 XX (12:03)
[2020-10-14] MEDS ORDERED: ALCOPAD25 TOP (12:03)
[2020-10-14] MEDS: GLIMEPIRIDE 2 MG TAB PO SCH (12:38)
[2020-10-14 12:50] LABS: BLOOD UREA NITROGEN 8 MG/DL (7-18); CALCIUM LEVEL 8.1 MG/DL (8.5-10.1); CARBON DIOXIDE LEVEL 19 MEQ/L (21-32); CHLORIDE LEVEL 110 MEQ/L (98-107); CREATININE FOR GFR 0.89 MG/DL (0.70-1.30); GLOMERULAR FILTRATION RATE > 60.0 (>60); GLUCOSE, FASTING 437 MG/DL (70-100); POTASSIUM SERUM 3.8 MEQ/L (3.5-5.1); SODIUM LEVEL 139 MEQ/L (136-145)
[2020-10-14] MEDS ORDERED: NS 0.45% 1,000 ML IV ONE (13:50)
[2020-10-14] MEDS ORDERED: INSULANT SC (14:01)
[2020-10-14 15:40] VITALS: BP 137/93
[2020-10-14] MEDS ORDERED: HumuLIN (NovoLIN)70/30 INSULIN INJ PER UNIT SC SCH ×2 (17:30)
[2020-10-14] MEDS ORDERED: HumaLOG INSULIN (NovoLOG) PER UNIT SC SCH ×2 (21:00)
[2020-10-14] MEDS: LEVEMIR (INSULIN DETEMIR) 1 UNITS/0.01ML SC SCH (21:23)
[2020-10-14 22:00] VITALS: BP 138/78
[2020-10-15 06:00] VITALS: BP 124/77
[2020-10-15 07:51] LABS: BASO # 0.1 10^3/uL (0.0-0.2); BASO % 1.2 % (0.0-1.0); EOS # 0.2 10^3/uL (0.0-0.5); EOS % 3.9 % (0.0-3.0); HEMOGLOBIN 13.8 g/dl (13.5-17.5); LYMPH # 2.1 10^3/uL (1.5-5.0); LYMPH % 39.6 % (24.0-44.0); MEAN CORPUSCULAR HEMOGLOBIN 29.7 pg (27.0-33.0); MEAN CORPUSCULAR HGB CONC 35.4 g/dl (32.0-36.5); MEAN CORPUSCULAR VOLUME 84.1 fl (80.0-96.0); MONO # 0.5 10^3/uL (0.0-0.8); MONO % 10.2 % (2.0-8.0); NEUTROPHILS # 2.3 10^3/uL (1.5-8.5); NEUTROPHILS % 43.9 % (36.0-66.0); PLATELET COUNT, AUTOMATED 137 10^3/uL (150-450); RED BLOOD COUNT 4.64 10^6/uL (4.30-6.10); WHITE BLOOD COUNT 5.2 10^3/uL (4.0-10.0)
[2020-10-15 08:17] LABS: ACETONE/KETONE 31.37 MG/DL (<2.81); BLOOD UREA NITROGEN 6 MG/DL (7-18); CALCIUM LEVEL 7.7 MG/DL (8.5-10.1); CARBON DIOXIDE LEVEL 25 MEQ/L (21-32); CHLORIDE LEVEL 103 MEQ/L (98-107); CREATININE FOR GFR 0.62 MG/DL (0.70-1.30); GLOMERULAR FILTRATION RATE > 60.0 (>60); GLUCOSE, FASTING 307 MG/DL (70-100); POTASSIUM SERUM 3.1 MEQ/L (3.5-5.1); SODIUM LEVEL 137 MEQ/L (136-145)
[2020-10-15] MEDS: ENOXAPARIN 40MG/0.4ML SYRINGE (J1650 PER 10MG) SC SCH (09:00)
[2020-10-15] MEDS: HumaLOG INSULIN (NovoLOG) PER UNIT SC SCH (09:47)
[2020-10-15] MEDS: PANTOPRAZOLE 40MG TAB (PROTONIX) PO SCH (09:47)
[2020-10-15] MEDS: POTASSIUM CHLORIDE 10 MEQ SR TABLET PO SCH (09:47)
[2020-10-15] MEDS: ATORVASTATIN 20 MG TAB PO SCH (09:47)
[2020-10-15] MEDS: LEVEMIR (INSULIN DETEMIR) 1 UNITS/0.01ML SC SCH (09:48)
[2020-10-15] MEDS: GLIMEPIRIDE 2 MG TAB PO SCH (09:53)
--- NOTE | 2020-10-15 11:32 | DS.PDOC ---
Discharge Summary General Date of Admission Oct 13, 2020 at 08:58 Date of Discharge 10/15/20 Discharge Summary PROCEDURES PERFORMED DURING STAY: [None]. DISCHARGE DIAGNOSES: Diabetic ketoacidosis Severe dehydration Hypertriglyceridemia> 1000 Hypokalemia Morbid obesity does not use CPAP Hypertension COMPLICATIONS/CHIEF COMPLAINT: DKA. HOSPITAL COURSE: 39 year old male with PMH of Hypertension, Diabetes diagnosed in July 2020, Morbid obesity, RENETTA on CPAP, HLD, generalized anxiety disorder presented to ED for chest pain ad shortness of breath for a few hours. he also complained of nausea and vomiting , poor appetite for 2 days and polyuria , polydipsia for 6 months. He was found to have DKA. DKA diagnosed with DM in july 2020, His sugars in 2019 were normal. resolving. Betahydroxybutyrate still elevated. changed to levemir and lispro insulin. will also give glimiperide. Tests sent out for islet cell antibodies. FS ac and HS. started on insulin teaching. Hypokalemia replaced Hypertriglyceridemia triglyceride 1076 continue on atorvastatin. patient was not taking it. Morbid obesity with RENETTA BMI of 40.1 does not use the CPAP as he has to go to the bathroom every hour. Encouraged to go back to using the CPAP as now with better sugar control he will not have polyuria. Hypertension Bp normal will not give any meds now. Follow up with PMD DISCHARGE MEDICATIONS: Please see below. ALLERGIES: Please see below. PHYSICAL EXAMINATION ON DISCHARGE: VITAL SIGNS: Please see below. General Exam: Positive: Alert, Cooperative, No Acute Distress Eye Exam: Positive: PERRLA, Conjunctiva & lids normal, EOMI; Negative: Sclera icteric ENT Exam: Positive: Atraumatic, Mucous membr. moist/pink, Pharynx Normal Neck Exam: Positive: Supple; Negative: JVD, thyromegaly Chest Exam: Positive: Clear to auscultation, Normal air movement Heart Exam: Positive: Rate Normal, Regular Rhythm, Normal S1, Normal S2; Negative: Murmurs, Rubs Telemetry: Positive: No significant arrhythmia, Sinus, Tachycardia Abdomen Exam: Positive: Normal bowel sounds, Soft, Other (obese); Negative: Tenderness Extremity Exam: Negative: Clubbing, Cyanosis, Edema LABORATORY DATA: Please see below. ACTIVITY: [As tolerated]. DIET: Consistent carbohydrate. DISCHARGE PLAN: Home DISPOSITION: Home DISCHARGE INSTRUCTIONS: Follow up with PMD within 1 week. Follow up results for Isset cell antibodies, ERNESTINA 65, Zinc transporter antibody, insulin antibody and anti IA2 antibody levels. DISCHARGE CONDITION: [Stable]. TIME SPENT ON DISCHARGE: 35 minutes. Vital Signs/I&Os Vital Signs Date Time Temp Pulse Resp B/P (MAP) Pulse Ox O2 Delivery O2 Flow Rate FiO2 10/15/20 06:00 99.0 71 18 124/77 (93) 96 Room Air I&O- Last 24 Hours up to 6 AM 10/15/20 06:00 Intake Total 3760 ml Output Total 1900 ml Balance 1860 ml Laboratory Data Labs 24H Laboratory Tests 2 10/14/20 11:39: Bedside Glucose (Misc Panel) 440H 10/14/20 12:07: Anion Gap 10, Glomerular Filtration Rate > 60.0, Calcium Level 8.1L 10/14/20 14:41: Bedside Glucose (Misc Panel) 410H 10/15/20 07:07: Immature Granulocyte % (Auto) 1.2, Neutrophils (%) (Auto) 43.9, Lymphocytes (%) (Auto) 39.6, Monocytes (%) (Auto) 10.2H, Eosinophils (%) (Auto) 3.9H, Basophils (%) (Auto) 1.2H, Neutrophils # (Auto) 2.3, Lymphocytes # (Auto) 2.1, Monocytes # (Auto) 0.5, Eosinophils # (Auto) 0.2, Basophils # (Auto) 0.1, Nucleated Red Blood Cells % (auto) 0.0 10/15/20 07:08: Anion Gap 9, Glomerular Filtration Rate > 60.0, Calcium Level 7.7L, B- Hydroxybutyrate 31.37H CBC/BMP Laboratory Tests 10/14/20 12:07 10/15/20 07:07 10/15/20 07:08 FSBS Laboratory Tests Test 10/14/20 11:39 10/14/20 14:41 Range/Units Bedside Glucose (Misc Panel) 440 410 70-105 MG/DL Discharge Medications Scheduled Atorvastatin Calcium (Atorvastatin Calcium) 40 Mg Tablet, 40 MG PO DAILY, (Reported) Blood Sugar Diagnostic (Advanced Glucose Test Strips) 1 Each Strip, 25 STRIP XX ASDIRECTED Ergocalciferol (Vitamin D2) (Vitamin D2) 50,000 Units Cap, 50,000 UNITS PO QWEEK, (Reported) FRIDAYS Escitalopram Oxalate (Lexapro) 20 Mg Tablet, 20 MG PO DAILY, (Reported) Insulin Glargine (Lantus) 100 Unit/1 Ml Vial, 35 UNITS SC QAM Metformin HCl (Metformin HCl) 500 Mg Tablet, 500 MG PO BID, (Reported) Allergies Coded Allergies: No Known Allergies (Unverified , 04/02/18) RAINA BARRAZA MD Oct 15, 2020 11:32
== END 2020-10-15 11:55 | disposition home or self-care (01) | DRG 638 ==
LOC: M ED 03:21 → M ED INP 08:58 → ENRESERV 10:00 → M ICU 10:34 → M MS5PR 10-14 15:40
PROVIDERS: ADMIT Internal Medicine Nephrology; ATTEND Internal Medicine Nephrology
DX: E11.10 Type 2 diabetes mellitus with ketoacidosis without coma (principal); Z68.41 Body mass index [BMI] 40.0-44.9, adult; I10 Essential (primary) hypertension; E66.01 Morbid (severe) obesity due to excess calories; G47.33 Obstructive sleep apnea (adult) (pediatric); E78.5 Hyperlipidemia, unspecified; E87.6 Hypokalemia; F41.1 Generalized anxiety disorder; E86.0 Dehydration; E55.9 Vitamin D deficiency, unspecified; F17.220 Nicotine dependence, chewing tobacco, uncomplicated; E78.2 Mixed hyperlipidemia; Z79.84 Long term (current) use of oral hypoglycemic drugs; Z79.899 Other long term (current) drug therapy; Z20.822 Contact with and (suspected) exposure to COVID-19

== ENCOUNTER 2021-10-04 02:23 | Emergency (ER) | payer OTHER ==
[~2021-10-04] VITALS: Ht 180.3 cm; Wt 127.3 kg
[2021-10-04 02:23] VITALS: BP 136/90
[~2021-10-04 02:23] MED LIST changes: +ALCOPAD25 TOP; +ATOR40TA75 PO; +BASA100I SC; +BLOOKIT21 XX; +ERGO500029 PO; +GLUC1TES2 XX; +HUMU70IN SC; +INSU1MIS20 SC; +INSULANT SC; +LANC30MI XX; +LEXA1TAB2 PO; +METF-839 PO
[2021-10-04] MEDS ORDERED: ISOVUE-370 76% 100ML VIAL As Ordered ONE (10:13)
[2021-10-04] MEDS ORDERED: LANTINJ4 SC (12:21)
[2021-10-04] MEDS ORDERED: ATOR80TA59 PO (12:21)
[2021-10-04] MEDS ORDERED: METF-838 PO (12:21)
== END 2021-10-04 03:57 | disposition left against medical advice (07) ==
LOC: M ED 02:23
DX: Z53.21 Procedure and treatment not carried out due to patient leaving prior to being seen by health care provider (principal)

== ENCOUNTER 2021-10-04 08:39 | Inpatient (IN) | payer OTHER ==
[~2021-10-04] VITALS: Ht 180.3 cm; Wt 126.4 kg
[2021-10-04] MEDS ORDERED: METOCLOPRAMIDE INJ 10MG/2ML VIAL (J2765 PER 1) IV ONE (08:50)
[2021-10-04] MEDS ORDERED: NS 1,000 ML IV ONE ×2 (08:50→09:45)
[2021-10-04] MEDS: OMEGA-3 1000MG CAPSULE PO SCH (09:00)
[2021-10-04 09:06] LABS: VENOUS BASE EXCESS -11.2 (-2.0-2.0); VENOUS HCO3 14.9 MEQ/L (23.0-27.0); VENOUS O2 SATURATION 73.5 % (60.0-80.0); VENOUS PARTIAL PRESSURE CO2 34.8 mmHg (38.0-50.0); VENOUS PARTIAL PRESSURE O2 36.6 mmHg (30.0-50.0); VENOUS PH 7.249 UNITS (7.330-7.430); VENOUS STANDARD HCO3 15.4 MEQ/L
[2021-10-04 09:49] LABS: HEMOGLOBIN A1c 12.4 %
[2021-10-04 09:52] LABS: BASO # 0.1 10^3/uL (0.0-0.2); BASO % 0.6 % (0.0-1.0); EOS % 0.1 % (0.0-3.0); HEMATOCRIT 43.7 % (42.0-52.0); HEMOGLOBIN 15.2 g/dl (13.5-17.5); LYMPH % 7.9 % (24.0-44.0); MEAN CORPUSCULAR HEMOGLOBIN 28.8 pg (27.0-33.0); MEAN CORPUSCULAR HGB CONC 34.8 g/dl (32.0-36.5); MEAN CORPUSCULAR VOLUME 82.8 fl (80.0-96.0); MONO # 1.2 10^3/uL (0.0-0.8); MONO % 9.6 % (2.0-8.0); NEUTROPHILS # 9.7 10^3/uL (1.5-8.5); PLATELET COUNT, AUTOMATED 258 10^3/uL (150-450); RED BLOOD COUNT 5.28 10^6/uL (4.30-6.10)
[2021-10-04 09:52] LABS: OSMOLALITY SERUM 295 MOSM/KG (275-295)
[2021-10-04 10:02] LABS: WHITE BLOOD COUNT 13.3 10^3/uL (4.0-10.0)
[2021-10-04 10:21] LABS: ACETONE/KETONE > 46.00 MG/DL (<2.81); BLOOD UREA NITROGEN 7 MG/DL (7-18); CALCIUM LEVEL 9.8 MG/DL (8.5-10.1); CARBON DIOXIDE LEVEL 17 MEQ/L (21-32); CHLORIDE LEVEL 100 MEQ/L (98-107); CREATININE FOR GFR 1.24 MG/DL (0.70-1.30); GLOMERULAR FILTRATION RATE > 60.0 (>60); GLUCOSE, FASTING 351 MG/DL (70-100); MAGNESIUM LEVEL 1.5 MG/DL (1.8-2.4); PHOSPHORUS LEVEL 2.8 MG/DL (2.5-4.9); POTASSIUM SERUM 3.7 MEQ/L (3.5-5.1); SODIUM LEVEL 132 MEQ/L (136-145)
[2021-10-04 10:44] LABS: ALT/SGPT 23 U/L (12-78); BILIRUBIN,DIRECT < 0.1 MG/DL (0.0-0.2); BILIRUBIN,TOTAL 1.3 MG/DL (0.2-1.0); LIPASE 8853 U/L (73-393); TOTAL PROTEIN 7.1 GM/DL (6.4-8.2)
[2021-10-04] MEDS ORDERED: MAG SULF 1GM/100ML (MAG RUN) 1 GM in IV 1 EA IV ONE (10:45)
[2021-10-04 10:58] LABS: ETHYL ALCOHOL (ETHANOL) < 0.003 % (0.000-0.010)
[2021-10-04] MEDS ORDERED: HumuLIN R (REGULAR) INSULIN (NovoLIN R) **100U/ML** PER UNIT IV ONE (11:00)
[2021-10-04 11:06] LABS: RSV AMPLIFICATION NEGATIVE (NEGATIVE)
[2021-10-04] MEDS ORDERED: ONDANSETRON 4MG/2ML VIAL IV ONE ×2 (11:15→20:40)
[2021-10-04] MEDS ORDERED: MORPHINE 4 MG/ML 1ML VIAL/SYRINGE IV PRN (11:15)
[2021-10-04 11:35] LABS: AMPHETAMINES LEVEL URINE NEGATIVE (NEGATIVE); BARBITURATES URINE NEGATIVE (NEGATIVE); BENZODIAZEPINES URINE NEGATIVE (NEGATIVE); CANNABINOIDS URINE NEGATIVE (NEGATIVE); COCAINE METABOLITE URINE NEGATIVE (NEGATIVE); METHADONE URINE NEGATIVE (NEGATIVE); OPIATES URINE NEGATIVE (NEGATIVE); PHENCYCLIDINE URINE NEGATIVE (NEGATIVE)
[2021-10-04] MEDS ORDERED: METF-838 PO (12:21)
[2021-10-04] MEDS ORDERED: LANTINJ4 SC (12:21)
[2021-10-04] MEDS ORDERED: ATOR80TA59 PO (12:21)
[2021-10-04] MEDS ORDERED: HOME MED LIST COMPLETE! XX SCH (12:25)
[2021-10-04 12:54] LABS: ABG BASE EXCESS -12.7 (-2.0-2.0); ABG HCO3 12.5 MEQ/L (22.0-26.0); ABG O2 SATURATION 95.8 % (95.0-99.0); ABG PARTIAL PRESSURE CO2 28.2 mmHg (35.0-45.0); ABG STANDARD HCO3 14.9 MEQ/L (22.0-26.0); ABG TOTAL CO2 13.4 MEQ/L (22.0-29.0); ABG pH (ARTERIAL) 7.265 UNITS (7.350-7.450)
[2021-10-04 13:18] LABS: CHOLESTEROL LEVEL 337 MG/DL (<200); CHOLESTEROL RISK RATIO 15.318 (<5); HDL CHOLESTEROL 22 MG/DL (>40); NON-HDL-C 315 MG/DL; TRIGLYCERIDES LEVEL 2655 MG/DL (<150)
[2021-10-04 13:21] LABS: BLOOD UREA NITROGEN 7 MG/DL (7-18); CALCIUM LEVEL 6.9 MG/DL (8.5-10.1); CARBON DIOXIDE LEVEL 17 MEQ/L (21-32); CHLORIDE LEVEL 102 MEQ/L (98-107); CREATININE FOR GFR 0.89 MG/DL (0.70-1.30); GLOMERULAR FILTRATION RATE > 60.0 (>60); GLUCOSE, FASTING 339 MG/DL (70-100); POTASSIUM SERUM 6.3 MEQ/L (3.5-5.1); SODIUM LEVEL 129 MEQ/L (136-145)
[2021-10-04] MEDS ORDERED: INSULIN REGULAR IV SCH ×2 (14:15)
[2021-10-04] MEDS ORDERED: NACL IV SCH ×2 (14:15)
[2021-10-04] MEDS ORDERED: NS 1,000 ML IV SCH (14:25)
[2021-10-04] MEDS: INSULIN REGULAR IN 0.9 % NACL 100 UNIT in IV 1 EA IV SCH ×2 (15:19)
[2021-10-04] MEDS: ATORVASTATIN 20 MG TAB PO SCH (15:20)
[2021-10-04] MEDS: HEPARIN SOD (PORCINE) 5000UNITS/ML 1ML VIAL/SYRINGE SC SCH ×2 (15:20→22:11)
[2021-10-04] MEDS: PANTOPRAZOLE 40MG VIAL IV SCH (15:20)
[2021-10-04 16:04] LABS: CK-MB VALUE MASS < 1.0 NG/ML (<3.6); CPK CREATINE PHOSPHOKINASE 445 U/L (39-308); MB/CK RELATIVE INDEX 0.22 (< OR =4)
[2021-10-04 17:02] VITALS: BP 172/89
[2021-10-04 19:01] VITALS: BP 156/71
[2021-10-04 20:00] VITALS: BP 152/95
[2021-10-04] MEDS ORDERED: D5W/0.9% SODIUM CHLORIDE 1,000 ML IV SCH ×2 (20:20→20:25)
[2021-10-04] MEDS: FENOFIBRATE 48MG TABLET (TRICOR) PO SCH (20:29)
[2021-10-04] MEDS: MORPHINE 4 MG/ML 1ML VIAL/SYRINGE IV PRN ×2 (20:29→20:48)
[2021-10-04 21:00] VITALS: BP 148/75
[2021-10-04 21:22] LABS: BLOOD UREA NITROGEN 8 MG/DL (7-18); CALCIUM LEVEL 8.3 MG/DL (8.5-10.1); CARBON DIOXIDE LEVEL 18 MEQ/L (21-32); CHLORIDE LEVEL 109 MEQ/L (98-107); CREATININE FOR GFR 0.87 MG/DL (0.70-1.30); GLOMERULAR FILTRATION RATE > 60.0 (>60); GLUCOSE, FASTING 190 MG/DL (70-100); SODIUM LEVEL 136 MEQ/L (136-145); TRIGLYCERIDES LEVEL 1611 MG/DL (<150)
[2021-10-04 22:00] VITALS: BP 140/71
[2021-10-04] MEDS: KCL 20MEQ IN D5/NS 1000ML 1,000 ML IV SCH (22:11)
[2021-10-04 23:00] VITALS: BP 115/72
[2021-10-05] VITALS (12 sets, daily range): BP systolic 121–154; BP diastolic 58–92
[2021-10-05 00:40] LABS: BLOOD UREA NITROGEN 8 MG/DL (7-18); CALCIUM LEVEL 8.9 MG/DL (8.5-10.1); CARBON DIOXIDE LEVEL 19 MEQ/L (21-32); CHLORIDE LEVEL 111 MEQ/L (98-107); CREATININE FOR GFR 0.84 MG/DL (0.70-1.30); GLOMERULAR FILTRATION RATE > 60.0 (>60); GLUCOSE, FASTING 134 MG/DL (70-100); MAGNESIUM LEVEL 1.9 MG/DL (1.8-2.4); POTASSIUM SERUM 5.1 MEQ/L (3.5-5.1); SODIUM LEVEL 134 MEQ/L (136-145)
[2021-10-05] MEDS: INSULIN REGULAR IN 0.9 % NACL 100 UNIT in IV 1 EA IV SCH ×2 (00:42)
[2021-10-05] MEDS: MORPHINE 4 MG/ML 1ML VIAL/SYRINGE IV PRN (00:46)
[2021-10-05] MEDS ORDERED: ONDANSETRON 4MG/2ML VIAL IV PRN (00:55)
[2021-10-05 04:44] LABS: HEMATOCRIT 45.3 % (42.0-52.0); MEAN CORPUSCULAR HEMOGLOBIN 28.7 pg (27.0-33.0); MEAN CORPUSCULAR HGB CONC 35.3 g/dl (32.0-36.5); MEAN CORPUSCULAR VOLUME 81.3 fl (80.0-96.0); PLATELET COUNT, AUTOMATED 182 10^3/uL (150-450); RED BLOOD COUNT 5.57 10^6/uL (4.30-6.10); WHITE BLOOD COUNT 12.1 10^3/uL (4.0-10.0)
[2021-10-05 05:06] LABS: ACETONE/KETONE 8.92 MG/DL (<2.81); BLOOD UREA NITROGEN 9 MG/DL (7-18); CALCIUM LEVEL 8.4 MG/DL (8.5-10.1); CARBON DIOXIDE LEVEL 20 MEQ/L (21-32); CHLORIDE LEVEL 112 MEQ/L (98-107); GLOMERULAR FILTRATION RATE > 60.0 (>60); GLUCOSE, FASTING 116 MG/DL (70-100); MAGNESIUM LEVEL 1.9 MG/DL (1.8-2.4); POTASSIUM SERUM 3.9 MEQ/L (3.5-5.1); SODIUM LEVEL 138 MEQ/L (136-145); TRIGLYCERIDES LEVEL 712 MG/DL (<150)
[2021-10-05 05:20] LABS: LYMPHOCYTES 9 % (16-44); MONOCYTES 3 % (0-5); NEUTROPHILS 85 % (28-66); PLATELET ESTIMATE NORMAL (NORMAL)
[2021-10-05] MEDS: KCL 20MEQ IN D5/NS 1000ML 1,000 ML IV SCH (06:06)
[2021-10-05] MEDS: HEPARIN SOD (PORCINE) 5000UNITS/ML 1ML VIAL/SYRINGE SC SCH ×3 (06:07→22:14)
[2021-10-05] MEDS ORDERED: GLUCAGON INJ 1MG VIAL SC PRN (08:40)
[2021-10-05] MEDS ORDERED: DEXTROSE 50% 50 ML SYRINGE IV PRN (08:40)
[2021-10-05] MEDS ORDERED: GLUCOSE 4GM CHEW TABLET PO PRN (08:40)
[2021-10-05] MEDS ORDERED: MORPHINE 2 MG/ML 1ML VIAL IV PRN (08:58)
[2021-10-05] MEDS: OMEGA-3 1000MG CAPSULE PO SCH (09:19)
[2021-10-05] MEDS: ATORVASTATIN 20 MG TAB PO SCH (09:19)
[2021-10-05] MEDS: PANTOPRAZOLE 40MG VIAL IV SCH (09:19)
[2021-10-05] MEDS: INSULIN LISPRO (NovoLOG) PER UNIT SC SCH ×2 (11:41→19:23)
[2021-10-05] MEDS ORDERED: LEVEMIR (INSULIN DETEMIR) 1 UNITS/0.01ML SC ONE (13:15)
[2021-10-05] MEDS: NS 1,000 ML IV SCH ×2 (13:20→22:15)
[2021-10-05 13:58] LABS: BLOOD UREA NITROGEN 8 MG/DL (7-18); CALCIUM LEVEL 9.1 MG/DL (8.5-10.1); CARBON DIOXIDE LEVEL 16 MEQ/L (21-32); CHLORIDE LEVEL 108 MEQ/L (98-107); CREATININE FOR GFR 0.64 MG/DL (0.70-1.30); GLOMERULAR FILTRATION RATE > 60.0 (>60); GLUCOSE, FASTING 301 MG/DL (70-100); MAGNESIUM LEVEL 1.8 MG/DL (1.8-2.4); POTASSIUM SERUM 3.4 MEQ/L (3.5-5.1); SODIUM LEVEL 137 MEQ/L (136-145)
[2021-10-05] MEDS ORDERED: POTASSIUM CHLORIDE 10MEQ SR TABLET PO ONE (15:20)
[2021-10-05] MEDS: cefTRIAXone SOD 1 GM in D5W MINI-BAG PLUS 50 ML IV SCH (15:40)
[2021-10-05] MEDS ORDERED: LORazepam 2 MG TAB PO PRN (19:45)
[2021-10-05] MEDS ORDERED: ACETAMINOPHEN TAB 650MG DOSE (2X325MG) PO ONE (20:05)
[2021-10-05] MEDS: FENOFIBRATE 48MG TABLET (TRICOR) PO SCH (20:23)
[2021-10-05] MEDS: LEVEMIR (INSULIN DETEMIR) 1 UNITS/0.01ML SC SCH (20:23)
[2021-10-05] MEDS: THIAMINE 100 MG TAB PO SCH (20:23)
[2021-10-05 20:24] LABS: BLOOD UREA NITROGEN 7 MG/DL (7-18); CALCIUM LEVEL 8.8 MG/DL (8.5-10.1); CARBON DIOXIDE LEVEL 20 MEQ/L (21-32); CHLORIDE LEVEL 107 MEQ/L (98-107); CREATININE FOR GFR 0.61 MG/DL (0.70-1.30); GLOMERULAR FILTRATION RATE > 60.0 (>60); GLUCOSE, FASTING 242 MG/DL (70-100); MAGNESIUM LEVEL 1.8 MG/DL (1.8-2.4); PHOSPHORUS LEVEL 1.7 MG/DL (2.5-4.9); POTASSIUM SERUM 3.3 MEQ/L (3.5-5.1); SODIUM LEVEL 139 MEQ/L (136-145)
[2021-10-06] VITALS: BP 139/88
[2021-10-06] MEDS: INSULIN LISPRO (NovoLOG) PER UNIT SC SCH ×4 (00:20→18:03)
[2021-10-06 04:00] VITALS: BP 136/90
[2021-10-06 04:18] LABS: HEMATOCRIT 36.2 % (42.0-52.0); MEAN CORPUSCULAR HEMOGLOBIN 28.8 pg (27.0-33.0); MEAN CORPUSCULAR HGB CONC 35.4 g/dl (32.0-36.5); MEAN CORPUSCULAR VOLUME 81.3 fl (80.0-96.0); PLATELET COUNT, AUTOMATED 151 10^3/uL (150-450); RED BLOOD COUNT 4.45 10^6/uL (4.30-6.10); WHITE BLOOD COUNT 11.1 10^3/uL (4.0-10.0)
[2021-10-06 04:30] LABS: HEMOGLOBIN 12.8 g/dl (13.5-17.5)
[2021-10-06 04:47] LABS: BLOOD UREA NITROGEN 7 MG/DL (7-18); CALCIUM LEVEL 8.9 MG/DL (8.5-10.1); CARBON DIOXIDE LEVEL 23 MEQ/L (21-32); CHLORIDE LEVEL 107 MEQ/L (98-107); CREATININE FOR GFR 0.56 MG/DL (0.70-1.30); GLOMERULAR FILTRATION RATE > 60.0 (>60); GLUCOSE, FASTING 213 MG/DL (70-100); SODIUM LEVEL 140 MEQ/L (136-145)
[2021-10-06] MEDS ORDERED: KCL 10MEQ/100ML SWI (KRUN) 10 MEQ in IV 1 EA IV ONE (05:00)
[2021-10-06] MEDS ORDERED: POTASSIUM CHLORIDE 10% LIQ 20 MEQ/15 ML UDC PO ONE (05:05)
[2021-10-06] MEDS: NS 1,000 ML IV SCH (05:45)
[2021-10-06] MEDS: HEPARIN SOD (PORCINE) 5000UNITS/ML 1ML VIAL/SYRINGE SC SCH ×3 (05:45→21:31)
[2021-10-06 07:18] LABS: MAGNESIUM LEVEL 1.9 MG/DL (1.8-2.4); PHOSPHORUS LEVEL 1.5 MG/DL (2.5-4.9)
[2021-10-06 08:13] VITALS: BP 140/83
[2021-10-06] MEDS ORDERED: NEUTRA-PHOS 1.5 GM PACKET PO SCH (09:00)
[2021-10-06] MEDS: PANTOPRAZOLE 40MG VIAL IV SCH (09:13)
[2021-10-06] MEDS: FOLIC ACID 1 MG TAB PO SCH (09:14)
[2021-10-06] MEDS: MULTIVITAMINS/MINERALS THERAP 1 TAB PO SCH (09:14)
[2021-10-06] MEDS: THIAMINE 100 MG TAB PO SCH ×2 (09:14→21:30)
[2021-10-06] MEDS: ATORVASTATIN 20 MG TAB PO SCH (09:14)
[2021-10-06] MEDS: OMEGA-3 1000MG CAPSULE PO SCH (09:14)
[2021-10-06 12:02] VITALS: BP 140/89
[2021-10-06] MEDS: cefTRIAXone SOD 1 GM in D5W MINI-BAG PLUS 50 ML IV SCH (14:14)
[2021-10-06 15:58] VITALS: BP 148/83
[2021-10-06 20:00] VITALS: BP 133/78
[2021-10-06] MEDS ORDERED: INSULIN LISPRO (NovoLOG) PER UNIT SC SCH (21:00)
[2021-10-06] MEDS ORDERED: DEXTROSE 50% 50 ML SYRINGE IV PRN (21:05)
[2021-10-06] MEDS ORDERED: GLUCOSE 4GM CHEW TABLET PO PRN (21:05)
[2021-10-06] MEDS ORDERED: GLUCAGON INJ 1MG VIAL SC PRN (21:05)
[2021-10-06] MEDS: LEVEMIR (INSULIN DETEMIR) 1 UNITS/0.01ML SC SCH (21:30)
[2021-10-06] MEDS: FENOFIBRATE 48MG TABLET (TRICOR) PO SCH (21:30)
[2021-10-07] VITALS: BP 139/85
[2021-10-07 04:00] VITALS: BP 143/88
[2021-10-07] MEDS: HEPARIN SOD (PORCINE) 5000UNITS/ML 1ML VIAL/SYRINGE SC SCH (05:51)
[2021-10-07 05:52] LABS: HEMATOCRIT 36.7 % (42.0-52.0); HEMOGLOBIN 12.8 g/dl (13.5-17.5); MEAN CORPUSCULAR HEMOGLOBIN 28.8 pg (27.0-33.0); MEAN CORPUSCULAR HGB CONC 34.9 g/dl (32.0-36.5); MEAN CORPUSCULAR VOLUME 82.5 fl (80.0-96.0); PLATELET COUNT, AUTOMATED 168 10^3/uL (150-450); RED BLOOD COUNT 4.45 10^6/uL (4.30-6.10); WHITE BLOOD COUNT 10.3 10^3/uL (4.0-10.0)
[2021-10-07 06:24] LABS: ALBUMIN 2.1 GM/DL (3.2-5.2); ALT/SGPT 20 U/L (12-78); BILIRUBIN,TOTAL 0.3 MG/DL (0.2-1.0); BLOOD UREA NITROGEN 8 MG/DL (7-18); CALCIUM LEVEL 8.9 MG/DL (8.5-10.1); CARBON DIOXIDE LEVEL 25 MEQ/L (21-32); CHLORIDE LEVEL 102 MEQ/L (98-107); CREATININE FOR GFR 0.64 MG/DL (0.70-1.30); GLOMERULAR FILTRATION RATE > 60.0 (>60); GLUCOSE, FASTING 324 MG/DL (70-100); MAGNESIUM LEVEL 1.9 MG/DL (1.8-2.4); PHOSPHORUS LEVEL 2.9 MG/DL (2.5-4.9); POTASSIUM SERUM 3.1 MEQ/L (3.5-5.1); SODIUM LEVEL 137 MEQ/L (136-145); TOTAL PROTEIN 6.3 GM/DL (6.4-8.2)
[2021-10-07] MEDS ORDERED: INSULIN LISPRO (NovoLOG) PER UNIT SC SCH (07:30)
[2021-10-07 07:38] VITALS: BP 143/85
[2021-10-07 08:20] VITALS: BP 143/85
[2021-10-07] MEDS: ATORVASTATIN 20 MG TAB PO SCH (08:20)
[2021-10-07] MEDS: MULTIVITAMINS/MINERALS THERAP 1 TAB PO SCH (08:20)
[2021-10-07] MEDS: OMEGA-3 1000MG CAPSULE PO SCH (08:20)
[2021-10-07] MEDS: FOLIC ACID 1 MG TAB PO SCH (08:20)
[2021-10-07] MEDS: PANTOPRAZOLE 40MG VIAL IV SCH (08:20)
[2021-10-07] MEDS: THIAMINE 100 MG TAB PO SCH (08:20)
[2021-10-07] MEDS ORDERED: CEFD300C41 PO (08:26)
[2021-10-07] MEDS ORDERED: FOLI1TAB11 PO (08:26)
[2021-10-07] MEDS ORDERED: FENO48TA8 PO (08:26)
[2021-10-07] MEDS ORDERED: THIA100TA PO (08:26)
[2021-10-07] MEDS ORDERED: VITMTA PO (08:26)
[2021-10-07] MEDS ORDERED: FISH1CAP26 PO (08:26)
[2021-10-07] MEDS ORDERED: LEVEMIR (INSULIN DETEMIR) 1 UNITS/0.01ML SC SCH (09:00)
== END 2021-10-07 10:23 | disposition home or self-care (01) | DRG 440 ==
LOC: M ED 08:39 → EDBD 08:39 → M ED INP 14:11 → ENRESERV 15:26 → M ICU 16:30 → M PCU 10-05 16:46
PROVIDERS: ADMIT Internal Medicine Pulmonary Disease; ATTEND Internal Medicine
DX: K85.90 Acute pancreatitis without necrosis or infection, unspecified (principal); E11.9 Type 2 diabetes mellitus without complications; I10 Essential (primary) hypertension; E66.01 Morbid (severe) obesity due to excess calories; G47.33 Obstructive sleep apnea (adult) (pediatric); E78.2 Mixed hyperlipidemia; F41.1 Generalized anxiety disorder; Z87.891 Personal history of nicotine dependence; Z79.4 Long term (current) use of insulin; Z79.899 Other long term (current) drug therapy; Z68.38 Body mass index [BMI] 38.0-38.9, adult